=== PATIENT | male | born 1960 | race Caucasian/White ===

== ENCOUNTER 2018-11-03 11:52 | Emergency (ER) | payer MEDICAID, OTHER ==
[~2018-11-03] VITALS: Ht 167.6 cm; Wt 90.7 kg
[2018-11-03 11:59] VITALS: Ht 167.6 cm; Wt 90.7 kg
[2018-11-03] MEDS ORDERED: KETOROLAC 30 MG INJ IM STA (14:46)
[2018-11-03] MEDS ORDERED: METHOCARBAMOL 750 MG TAB PO ONE (15:00)
[2018-11-03] MEDS ORDERED: IBUP-1542 PO (16:12)
[2018-11-03] MEDS ORDERED: TYL500 PO (16:12)
[2018-11-03] MEDS ORDERED: METH750T93 PO (16:12)
[2018-11-03 16:27] VITALS: BP 127/61; PULSE 68; RESP 20
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
== END 2018-11-03 16:30 | disposition home or self-care (01) ==
LOC: FTE 11:52
DX: M54.2 Cervicalgia (principal); Z86.73 Personal history of transient ischemic attack (TIA), and cerebral infarction without residual deficits; Z87.891 Personal history of nicotine dependence
CPT/HCPCS: 73130; 73140; 96372; J1885; Z7502; Z7610

== ENCOUNTER 2019-02-24 12:30 | Observation (INO) | payer OTHER ==
[~2019-02-24] VITALS: Ht 177.8 cm; Wt 88.3 kg
[~2019-02-24 12:30] MED LIST: IBUP-1542 PO; METH750T93 PO; TYL500 PO
[2019-02-24] MEDS ORDERED: ASPIRIN 325 MG TAB PO STA (13:04)
[2019-02-24] MEDS ORDERED: NITROGLYCERIN 2% 1 GM OINT PKT TD STA (13:04)
--- NOTE | 2019-02-24 17:26 | ERD ---
ER Documentation Chief Complaint Chief Complaint pt has cp x 4 hours and migraine 8/10 x 24 hours 8/10 HPI This is a 59-year-old male who has diabetes who complained yesterday of a pressure sensation to the left central chest lasted just about a minute and then went away. He said today returned again and lasted 30 minutes with diaphoresis no shortness of breath or nausea or palpitations. The pain is currently gone. The pain did not radiate. Patient does not know if he has hypertension or high cholesterol. ROS All systems reviewed and are negative except as per history of present illness. Medications Home Meds Discontinued Scripts Methocarbamol* (Robaxin*) 750 Mg Tablet, 750 MG PO TID PRN for MUSCLE SPASMS, #30 TAB Prov:MARYBEL GONGORA DO 11/03/18 Acetaminophen* (Tylenol*) 500 Mg Tab, 500 MG PO Q4H PRN for MILD PAIN LEVEL 1-3, #30 TAB Prov:MARYBEL GONGORA DO 11/03/18 Ibuprofen* (Motrin*) 600 Mg Tab, 600 MG PO Q6H PRN for PAIN AND OR ELEVATED TEMP, #30 TAB Prov:MARYBEL GONGORA DO 11/03/18 Allergies Allergies: Coded Allergies: No Known Allergy (Unverified , 02/24/19) PMhx/Soc History of Surgery: Yes (amputation of left hand third finger) Anesthesia Reaction: No Hx Neurological Disorder: Yes (TIA, 2010, NO RESIDUAL) Hx Respiratory Disorders: No Hx Cardiac Disorders: No Hx Psychiatric Problems: No Hx Miscellaneous Medical Probl: No Hx Alcohol Use: No Hx Substance Use: No Hx Tobacco Use: Yes (SMOKED FOR 38 YEARS, QUIT 2 Y AGO) Smoking Status: Former smoker FmHx Family History: No coronary disease Physical Exam Vitals Vital Signs Date Temp Pulse Resp B/P (MAP) Pulse Ox O2 O2 Flow FiO2 Time Delivery Rate 02/24/19 97.9 84 21 122/76 94 Room Air 15:12 (91) 02/24/19 97.9 89 20 164/84 94 12:42 (110) Physical Exam Const: Well-developed, well-nourished Head: Atraumatic, normocephalic Eyes: Normal Conjunctiva, PERRLA, EOMI, normal sclera, no nystagmus ENT: Normal External Ears, Nose and Mouth, moist mucus membranes. Neck: Full range of motion. No meningismus, no lymphadenopathy. Resp: Clear to auscultation bilaterally, no wheezing, rhonchi, rales Cardio: Regular rate and rhythm, no murmurs, S1 S2 present Abd: Soft, non tender x 4, non distended. Normal bowel sounds, no gua rding or rebound, no pulsitile abdominal masses or bruits Skin: No petechiae or rashes, no ecchymosis , no maculopapular rash Back: No midline or flank tenderness Ext: No cyanosis, or edema, FROM x 4, normal inspection, neurovascularly intact x 4 Neur: Awake and alert, STR 5/5 x 4, sensation intact x 4, no focal findings, cerebellum intact Psych: Normal Mood and Affect Result Diagram: 02/24/19 1310 02/24/19 1310 Results 24 hrs Laboratory Tests Test 02/24/19 13:10 White Blood Count 8.4 10^3/ul Red Blood Count 6.04 10^6/ul Hemoglobin 14.9 g/dl Hematocrit 45.9 % Mean Corpuscular Volume 76.0 fl Mean Corpuscular Hemoglobin 24.7 pg Mean Corpuscular Hemoglobin Concent 32.5 g/dl Red Cell Distribution Width 16.1 % Platelet Count 257 10^3/UL Mean Platelet Volume 10.1 fl Immature Granulocytes % 0.400 % Neutrophils % 63.7 % Lymphocytes % 27.5 % Monocytes % 6.8 % Eosinophils % 1.1 % Basophils % 0.5 % Nucleated Red Blood Cells % 0.0 /100WBC Immature Granulocytes # 0.030 10^3/ul Neutrophils # 5.3 10^3/ul Lymphocytes # 2.3 10^3/ul Monocytes # 0.6 10^3/ul Eosinophils # 0.1 10^3/ul Basophils # 0.0 10^3/ul Nucleated Red Blood Cells # 0.0 10^3/ul Sodium Level 141 mmol/L Potassium Level 4.1 mmol/L Chloride Level 106 mmol/L Carbon Dioxide Level 23 mmol/L Anion Gap 12 Blood Urea Nitrogen 14 mg/dl Creatinine 0.82 mg/dl Est Glomerular Filtrat Rate mL/min > 60 mL/min Glucose Level 176 mg/dl Calcium Level 9.6 mg/dl Total Bilirubin 0.4 mg/dl Direct Bilirubin 0.00 mg/dl Indirect Bilirubin 0.4 mg/dl Aspartate Amino Transf (AST/SGOT) 20 IU/L Alanine Aminotransferase (ALT/SGPT) 33 IU/L Alkaline Phosphatase 71 IU/L Troponin I < 0.012 ng/ml Total Protein 7.8 g/dl Albumin 4.7 g/dl Globulin 3.10 g/dl Albumin/Globulin Ratio 1.51 Current Medications Medications Dose Sig/Leslie Start Time Status Last (Trade) Ordered Route PRN Stop Time Admin Dose Reason Admin Aspirin 325 mg ONCE STAT 02/24/19 DC 02/24/19 (Aspirin) PO 13:04 13:15 02/24/19 13:05 1 inch ONCE STAT 02/24/19 DC 02/24/19 Nitroglycerin TD 13:04 13:15 02/24/19 13:05 (Nitroglyceri n 2% Oint) Procedures/MDM EKG: Rate/Rhythm: Normal Sinus Rhythm,NL intervals QRS, ST, QT: NORMAL MO, QRS, QT] Impression: NORMAL EKG MR #: [id number] DOS: 02/24/19 1304 Ordering MD: GENTRY LOVE DO Location: E/R Room/Bed: PROCEDURE: XR Chest. CLINICAL INDICATION: Chest pain TECHNIQUE: Single portable view of the chest was obtained COMPARISON: CR CHEST 11/21/2012 FINDINGS: The heart and mediastinum are within normal limits. There are mild bibasilar atelectatic changes. The lungs are otherwise clear. There is no pleural effusion or pneumothorax. RPTAT: AA IMPRESSION: Mild bibasilar atelectatic changes. .Naresh Terry MD, MD Date Time Electronically viewed and signed by .Naresh Terry MD, on 02/24/2019 13:25 .S/ CC: GENTRY LOVE DO [id number] Cardiac Admit MDM: Patient's symptoms are concerning for cardiac cause will require inpatient workup and continuous monitoring. Further w/u for ischemia, arrhythmia, PE or dissection will be deferred to the inpatient team. Departure Diagnosis: Primary Impression: Chest pain Chest pain type: unspecified Qualified Codes: R07.9 - Chest pain, unspecified Condition: Stable GENTRY LOVE DO Feb 24, 2019 17:26
[2019-02-24] MEDS ORDERED: ONDANSETRON 4 MG INJ IV PRN (17:30)
[2019-02-24] MEDS ORDERED: NACL 0.9% 3 ML SYG IV SCH (17:30)
[2019-02-24] MEDS ORDERED: ACETAMINOPHEN 325 MG TAB PO PRN (17:30)
--- NOTE | 2019-02-24 18:18 | HP ---
Date/Time of Note Date/Time of Note DATE: 02/24/19 TIME: 18:17 Assessment/Plan VTE Prophylaxis Pharmacological prophylaxis: heparin Lines/Catheters IV [facility] Saline Lock Assessment/Plan Hospital Course This is a 59-year-old male with history of diabetes who presents with atypical chest pain -Likely this is a musculoskeletal pain syndrome but we must rule out ACS by cycling troponins -Doubt that this is a PE given he has negative Wells criteria -Monitor overnight Result Diagram: 02/24/19 1310 02/24/19 1310 Results 24hrs Laboratory Tests Test 02/24/19 13:10 White Blood Count 8.4 Red Blood Count 6.04 Hemoglobin 14.9 Hematocrit 45.9 Mean Corpuscular Volume 76.0 L Mean Corpuscular Hemoglobin 24.7 L Mean Corpuscular Hemoglobin Concent 32.5 Red Cell Distribution Width 16.1 H Platelet Count 257 Mean Platelet Volume 10.1 Immature Granulocytes % 0.400 Neutrophils % 63.7 Lymphocytes % 27.5 Monocytes % 6.8 Eosinophils % 1.1 Basophils % 0.5 Nucleated Red Blood Cells % 0.0 Immature Granulocytes # 0.030 Neutrophils # 5.3 Lymphocytes # 2.3 Monocytes # 0.6 Eosinophils # 0.1 Basophils # 0.0 Nucleated Red Blood Cells # 0.0 Sodium Level 141 Potassium Level 4.1 Chloride Level 106 Carbon Dioxide Level 23 Anion Gap 12 Blood Urea Nitrogen 14 Creatinine 0.82 Est Glomerular Filtrat Rate mL/min > 60 Glucose Level 176 Calcium Level 9.6 Total Bilirubin 0.4 Direct Bilirubin 0.00 Indirect Bilirubin 0.4 Aspartate Amino Transf (AST/SGOT) 20 Alanine Aminotransferase (ALT/SGPT) 33 Alkaline Phosphatase 71 Troponin I < 0.012 Total Protein 7.8 Albumin 4.7 Globulin 3.10 Albumin/Globulin Ratio 1.51 HPI/ROS Admit Date/Time Admit Date/Time Hx of Present Illness This is 59-year-old male with a history of mild diabetes who presents with headache and chest pain he was in his usual state of good health until 2 days ago. He says that he has developed a migraine that gave him severe symptoms off and on for 2 days. These were tolerable and he did not seek medical care. Headache is now resolved. However the past day he has developed pains in his chest. Describes the pain as initially as sharp pinches. However then lasted for about 20 to 30-minute episodes. These occurred at rest. They were not associated with any other symptoms like shortness of breath or palpitations. He does not have any exertional symptoms. Has never had angina before ROS Constitutional: no complaints, improved Eyes: no complaints ENT: no complaints Respiratory: no complaints Cardiovascular: no complaints Gastrointestinal: no complaints Genitourinary: no complaints Musculoskeletal: no complaints Skin: no complaints Neurologic: no complaints Endocrine: no complaints Lymphatic: no complaints Psychological: no complaints, nl mood/affect Immunologic: no complaints PMH/Family/Social Past Medical History Medical History: no pertinent history Medications Current Medications IV Flush (NS 3 ml) 3 ml PER PROTOCOL IV ; Start 02/24/19 at 17:30; Status UNV Acetaminophen/ Hydrocodone Bitart (Solomon (5/325)) 2 tab Q6H PRN PO .SEVERE PAIN 7-10; Start 02/24/19 at 17:30; Status UNV Enoxaparin Sodium (Lovenox) 30 mg DAILY SC ; Start 02/25/19 at 09:00; Status UNV Ondansetron HCl (Zofran Inj) 4 mg ER BRIDGE PRN IV NAUSEA/VOMITING; Start 02/24/19 at 17:30; Stop 02/25/19 at 17:29 Acetaminophen (Tylenol Tab) 650 mg ER BRIDGE PRN PO .MILD PAIN 1-3 OR TEMP; S tart 02/24/19 at 17:30; Stop 02/25/19 at 17:29 Coded Allergies: No Known Allergy (Unverified , 02/24/19) Past Surgical History Past Surgical Hx: no surgical history Family History Significant Family History: no pertinent family hx Social History Smoking Status: Former smoker Drug Use: none Exam/Review of Systems Vital Signs Vitals Vital Signs Date Temp Pulse Resp B/P (MAP) Pulse Ox O2 O2 Flow FiO2 Time Delivery Rate 02/24/19 97 17 105/60 98 Room Air 17:28 (75) 02/24/19 97.9 15:12 Exam Constitutional: alert, oriented, well developed Psych: no complaints, nl mood/affect Head: normocephalic, atraumatic Eyes: nl conjunctiva, EOMI, nl lids, nl sclera, PERRL ENMT: nl external ears & nose, nl lips & teeth, nl nasal mucosa & septum Neck: supple, non-tender Respiratory: clear to auscultation, normal air movement Cardiovascular: regular rate and rhythm, nl pulses Gastrointestinal: soft, nl liver, spleen, non-tender Musculoskeletal: nl extremities to inspection Extremities: normal pulses Neurological: [employer] II-XII intact, nl mental status, nl speech, nl strength Skin: nl turgor; No rash or lesions Lymph: nl lymph nodes ANTONY ARIAS MD Feb 24, 2019 18:18
[2019-02-25] VITALS (11 sets, daily range): BP systolic 116–141; BP diastolic 58–73; PULSE 73–99; RESP 18–20; Ht 177.8 cm; Wt 88.3 kg
[2019-02-25] MEDS: HYDROCODONE/APAP (5/325) TAB PO PRN (00:27)
[2019-02-25] MEDS: ENOXAPARIN 30 MG/0.3 ML SYG SC SCH (08:50)
--- NOTE | 2019-02-25 14:54 | PN ---
Date/Time of Note Date/Time of Note DATE: 02/25/19 TIME: 14:46 Assessment/Plan VTE Prophylaxis Risk score (from Nsg)>0 risk: 2 SCD applied (from Nsg): Yes Pharmacological prophylaxis: NA/contraindicated Pharm contraindication: low risk/ambulating Lines/Catheters IV Catheter Type (from Nrsg): Saline Lock Urinary Cath still in place: No Assessment/Plan Hospital Course 59 yo M with sudden onset L sided chest pain with remote hx of similar and 38 yrs of tobacco abuse who quit 8 years ago managed for 1. Chest pain -ACS has been ruled out, but patient based on hx may benefit from stress testing -add lipid panel and TSH -cardio consult 2. DM 2: A1c 7.4 -patient is now Diabetic as compared to being prediabetic before -he has been counselled on the need for dietary and medication control -plan to dc on low dose metformin at discharge Dispo: -await cardio review and recs. supportive care Result Diagram: 02/25/19 0504 02/25/19 0504 Results 24hrs Laboratory Tests Test 02/24/19 17:59 02/25/19 05:04 Troponin I < 0.012 < 0.012 White Blood Count 8.5 Red Blood Count 5.15 Hemoglobin 12.9 L Hematocrit 39.6 L Mean Corpuscular Volume 76.9 L Mean Corpuscular Hemoglobin 25.0 L Mean Corpuscular Hemoglobin Concent 32.6 Red Cell Distribution Width 15.6 H Platelet Count 225 Mean Platelet Volume 10.0 Immature Granulocytes % 0.400 Neutrophils % 51.0 Lymphocytes % 37.6 Monocytes % 8.0 Eosinophils % 2.5 Basophils % 0.5 Nucleated Red Blood Cells % 0.0 Immature Granulocytes # 0.030 Neutrophils # 4.3 Lymphocytes # 3.2 H Monocytes # 0.7 Eosinophils # 0.2 Basophils # 0.0 Nucleated Red Blood Cells # 0.0 Sodium Level 140 Potassium Level 4.2 Chloride Level 104 Carbon Dioxide Level 26 Anion Gap 10 Blood Urea Nitrogen 19 Creatinine 0.92 Est Glomerular Filtrat Rate mL/min > 60 Glucose Level 114 # Hemoglobin A1c 7.6 H Calcium Level 9.5 Total Bilirubin 0.5 Direct Bilirubin 0.00 Indirect Bilirubin 0.5 Aspartate Amino Transf (AST/SGOT) 18 Alanine Aminotransferase (ALT/SGPT) 35 Alkaline Phosphatase 55 Total Protein 6.3 # Albumin 3.8 Globulin 2.50 Albumin/Globulin Ratio 1.52 Subjective 24 Hr Interval Summary Free Text/Dictation still reporting L sided chest soreness Exam/Review of Systems Exam Vitals Vital Signs Date Temp Pulse Resp B/P (MAP) Pulse Ox O2 O2 Flow FiO2 Time Delivery Rate 02/25/19 88 12:16 02/25/19 97.5 18 116/70 95 Room Air 11:09 (85) Intake and Output 02/24/19 02/24/19 02/25/19 1515:00 23:00 07:00 IntakeIntake Total 500 ml BalanceBalance 500 ml Exam General: A&O x3, answering questions appropriately HEENT: NC/ AT. PERRL. EOM intact Neck: supple CVS: S1, S2, RRR. no murmurs. soreness on chest wall palpation Lungs: CTA b/l. no wheezing or rhonchi Abd: soft, nontender, +BS Ext: moving all extremities skin: no rashes Results Results 24hrs Laboratory Tests Test 02/24/19 17:59 02/25/19 05:04 Troponin I < 0.012 < 0.012 White Blood Count 8.5 Red Blood Count 5.15 Hemoglobin 12.9 L Hematocrit 39.6 L Mean Corpuscular Volume 76.9 L Mean Corpuscular Hemoglobin 25.0 L Mean Corpuscular Hemoglobin Concent 32.6 Red Cell Distribution Width 15.6 H Platelet Count 225 Mean Platelet Volume 10.0 Immature Granulocytes % 0.400 Neutrophils % 51.0 Lymphocytes % 37.6 Monocytes % 8.0 Eosinophils % 2.5 Basophils % 0.5 Nucleated Red Blood Cells % 0.0 Immature Granulocytes # 0.030 Neutrophils # 4.3 Lymphocytes # 3.2 H Monocytes # 0.7 Eosinophils # 0.2 Basophils # 0.0 Nucleated Red Blood Cells # 0.0 Sodium Level 140 Potassium Level 4.2 Chloride Level 104 Carbon Dioxide Level 26 Anion Gap 10 Blood Urea Nitrogen 19 Creatinine 0.92 Est Glomerular Filtrat Rate mL/min > 60 Glucose Level 114 # Hemoglobin A1c 7.6 H Calcium Level 9.5 Total Bilirubin 0.5 Direct Bilirubin 0.00 Indirect Bilirubin 0.5 Aspartate Amino Transf (AST/SGOT) 18 Alanine Aminotransferase (ALT/SGPT) 35 Alkaline Phosphatase 55 Total Protein 6.3 # Albumin 3.8 Globulin 2.50 Albumin/Globulin Ratio 1.52 Medications Medication Current Medications IV Flush (NS 3 ml) 3 ml PER PROTOCOL IV ; Start 02/24/19 at 17:30 Acetaminophen/ Hydrocodone Bitart (Timber (5/325)) 2 tab Q6H PRN PO .SEVERE PAIN 7-10 Last administered on 02/25/19at 00:27; Admin Dose 2 TAB; Start 02/24/19 at 17:30 Enoxaparin Sodium (Lovenox) 30 mg DAILY SC Last administered on 02/25/19at 08:50; Admin Dose 30 MG; Start 02/25/19 at 09:00 Ondansetron HCl (Zofran Inj) 4 mg ER BRIDGE PRN IV NAUSEA/VOMITING; Start 02/24/19 at 17:30; Stop 02/25/19 at 17:29 Acetaminophen (Tylenol Tab) 650 mg ER BRIDGE PRN PO .MILD PAIN 1-3 OR TEMP Last administered on 02/24/19at 23:01; Admin Dose 650 MG; Start 02/24/19 at 17:30; Stop 02/25/19 at 17:29 ISA NICOLE February 25, 2019 14:54
[2019-02-25] MEDS ORDERED: NITROGLYCERIN (SL) 0.4 MG TAB SL PRN (15:00)
--- NOTE | 2019-02-25 15:39 | CONS ---
DATE OF ADMISSION: 02/24/2019 DATE OF CONSULTATION: 02/25/2019 REASON FOR CONSULTATION: Chest pain, assess for acute coronary syndrome. REQUESTING PHYSICIAN: Dr. Nicole from the hospitalist service. HISTORY OF PRESENT ILLNESS: Mr. Fonseca is a 59-year-old male with history of diabetes mellitus who presented with complaints of substernal chest pain, stating that he had been at work and was doing i nventory on the computer. He began to have a headache and began to get very severe and began to get a pain in his chest, like a pinch filling, which began to get worse and more severe. Given these fin dings, the patient presented to the Emergency Department. Where upon arrival, temperature 97.9, bloo d pressure 164/84, pulse 89, respiratory rate 20, saturating 94%. The patient's labs revealed white count 8.4, hemoglobin 14.9, platelet count of 257,000. Sodium 141, potassium 4.1, creatinine 0.8, BU N 14. Troponin negative. AST 20, ALT 33. The patient's chest x-ray revealed mild bibasilar atelect atic change. The patient's electrocardiogram revealed normal sinus rhythm, rate 95, normal axis, nor mal intervals, with borderline inferior Q's. The patient was admitted to the floor and since admit t o the floor, states he had mild chest pain, which has since resolved. The patient had negative tropo harsha x2. PAST MEDICAL HISTORY: As above in HPI. MEDICATIONS CURRENTLY IN HOSPITAL: 1. Lovenox 30 mg subcutaneous daily. 2. Hope p.r.n. 3. Zofran p.r.n. 4. Tylenol p.r.n. ALLERGIES: NO KNOWN DRUG ALLERGIES. SOCIAL HISTORY: Remote tobacco, quit x8 to 10 years. No ETOH or illicit drug use. FAMILY HISTORY: Denies sudden cardiac or early CAD. REVIEW OF SYSTEMS: As above in HPI. CONSTITUTIONAL: No fevers, chills. PULMONARY: No current shortness of breath. CARDIOVASCULAR: Chest pain. GASTROINTESTINAL: No vomiting. GENITOURINARY: No hematuria. MUSCULOSKELETAL: Degenerative joint disease. PSYCHIATRIC: No documented psych history. NEUROLOGIC: No documented history of CVA. ENDOCRINE: Diabetes mellitus. PHYSICAL EXAMINATION: VITAL SIGNS: Temperature of 97.5, blood pressure 116/70, pulse 76, rate 18, saturating 95%. GENERAL: The patient is alert, awake, in no acute distress. NECK: JVP approximately 8 to 9 cm of water. CHEST: Fair air movement throughout. HEART: Regular rate and rhythm. Normal S1, S2. Grade I/ systolic murmur, nondisplaced PMI. ABDOMEN: Positive bowel sounds. Soft. EXTREMITIES: No significant pitting edema, 1+ pulses bilateral posterior tibial. LABORATORY DATA: Most recently from today: Sodium 140, potassium 4.2, creatinine 0.9, BUN 19. Whit e blood count 8.5, hemoglobin 12.9, platelet count of 225,000. Hemoglobin A1c of 7.6. IMAGING STUDIES: As above in HPI. No further imaging studies for my review at this time. DIAGNOSTIC STUDIES: ECG as noted in the HPI. No further electrocardiograms for my review at this ti me. IMPRESSION: 1. Chest pain, assess for acute coronary syndrome. 2. . 3. Abnormal echocardiogram with borderline inferior Q's and nonspecific ST-T abnormalities. 4. Headaches. 5. Diabetes mellitus. RECOMMENDATIONS: 1. At this time would maintain patient on telemetry monitoring and follow rhythm and rates closely. 2. Complete the patient's rule out for myocardial infarction. They will send a final troponin. 3. We will give the patient sublingual nitroglycerin for any recurrent episodes of chest pain. 4. We will follow the patient's 2D echocardiogram done for assessment of ejection fraction, wall mot ion and major valve abnormalities. 5. Check a fasting lipid panel for general risk stratification and initiate lipid-lowering medicatio n as necessary. 6. If patient does rule out for myocardial infarction, I believe this patient would benefit from fur ther inpatient risk stratification with cardiac stress test, which can be scheduled to take place [facility] in the morning. Thank you for allowing me to take part in the care of this patient. I will continue to follow along very closely with you with recommendations to be made as the patient progresses through his inpatient hospital clinical course. Dictated By: KIMBERLY BERNAL/NTS Conf#: [id number] DID#: [id number] CC: ISA NICOLE MD; ANTONY ARIAS MD;*EndCC*
--- NOTE | 2019-02-25 19:10 | RADRPT ---
Echocardiogram Report Patient Name: Nany BOLES ID: [id number] : 1960 (59y 2m)Study Date: 02/25/2019 11:39:04 AM Gender: MAccession #: [id number] Tech: Rick Saeed RDCS Location: 606 Ref.Physician: ISA NICOLE Height(Cm): BSA: Weight(Kg): Quality: AdequateAccount #: Procedures: Echocardiographic Report: Transthoracic echocardiogram with complete 2D, M-Mode, and doppler examination. Indications: Chest Pain. Measurements: 2D/M Mode Doppler Measurement Value Normal Range Measurement Value Normal Range LVIDd 2D 4.0 [ 4.2 - 5.8 ] cm AV Peak Uche 1.3 [ 100.0 - 170.0 ] cm/sec LVIDs 2D 2.6 [ 2.5 - 4.0 ] cm AV Peak PG 7.0 [ 2.0 - 9.0 ] mmHg LVPWd 2D 1.0 [ 0.6 - 1.0 ] cm LVOT Peak Uche 0.9 [ 70.0 - 110.0 ] cm/sec IVSd 2D 1.1 [ 0.6 - 1.0 ] cm LVOT Peak PG 3.0 [ 2.0 - 6.0 ] mmHg AoR Diam 2D 2.9 [ 2.6 - 3.4 ] cm MV E Peak Uche 0.4 [ 60.0 - 130.0 ] cm/sec EDV 2D 71.7 [ 62.0 - 150.0 ] ml MV A Peak Uche 0.8 [ 100.0 - 120.0 ] cm/sec ESV 2D 23.7 [ 21.0 - 61.0 ] ml MV E/A 0.5 [ 0.8 - 1.5 ] ratio EF 2D 66.9 [ 52.0 - 72.0 ] percent MV Decel Time 352 [ 104 - 258 ] msec LA Dimen 2D 2.8 [ 3.0 - 4.0 ] cm Lat E` Uche 0.1 [ 10.0 - 15.0 ] cm/sec Lateral E/E` 5.8 [ 1.0 - 2.0 ] ratio MV E/A 0.5 [ 0.8 - 1.5 ] ratio TR Peak Uche 2.1 [ 100.0 - 280.0 ] cm/sec TR Peak PG 18.0 mmHg RVSP 21.0 [ 10.0 - 36.0 ] mmHg RA Pressure 3.0 mmHg Findings: Left Ventricle: Normal left ventricular systolic function. Normal left ventricular cavity size. Mild concentric left ventricular hypertrophy. Ejection fraction is visually estimated at 55 %. Tissue Doppler/Mitral Doppler indices are consistent with impaired relaxation (Stage I diastolic dysfunction). Right Ventricle: Normal right ventricular systolic function. Mild enlargement of right ventricle. Left Atrium: The left atrium is normal in size. Right Atrium: There is mild enlargement of right atrium. Mitral Valve: Normal appearance and function of the mitral valve with trace physiologic regurgitation. Aortic Valve: Normal appearance of the aortic valve. No significant aortic stenosis or insufficiency. Tricuspid Valve: Normal appearance of the tricuspid valve. Estimated peak PA systolic pressure 21 mmHg. There is trace tricuspid regurgitation. Pulmonic Valve: Normal pulmonic valve appearance. Pericardium: Normal pericardium with no significant pericardial effusion. Aorta: Normal aortic root. IVC: Normal size and normal respiratory collapse consistent with normal right atrial pressure. Conclusions: Normal left ventricular systolic function. Normal left ventricular cavity size. Mild concentric left ventricular hypertrophy. Ejection fraction is visually estimated at 55 %. Tissue Doppler/Mitral Doppler indices are consistent with impaired relaxation (Stage I diastolic dysfunction). There is mild enlargement of right atrium. Normal appearance and function of the mitral valve with trace physiologic regurgitation. Normal appearance of the tricuspid valve. Estimated peak PA systolic pressure 21 mmHg. There is trace tricuspid regurgitation. Electronically Signed By: Pancho Betancourt 2019-02-25 19:10:01 PDT
[2019-02-26] VITALS (13 sets, daily range): BP systolic 117–155; BP diastolic 60–73; PULSE 62–102; RESP 18–22
[2019-02-26] MEDS: ENOXAPARIN 30 MG/0.3 ML SYG SC SCH (09:13)
[2019-02-26] MEDS ORDERED: REGADENOSON 0.4 MG/5 ML SYG ONE (12:18)
[2019-02-26] MEDS ORDERED: ASPI-817 PO (12:25)
[2019-02-26] MEDS ORDERED: METF500T PO (12:25)
[2019-02-26] MEDS ORDERED: ATOR40TA68 PO (12:25)
--- NOTE | 2019-02-26 12:26 | PDOCDIS ---
Discharge Instructions CONDITION [id number] Patient Condition: [id number] Stable HOME CARE INSTRUCTIONS: [id number] Diet Instructions: Gcoqp2m Low Fat /Cholesterol ACTIVITY: [id number] Activity Restrictions: Bopgd2e Slowly Increase Activity Rest between Activity FOLLOW UP/APPOINTMENTS Follow-up Plan Followup with your primary doctor within the next 1-2 weeks. If you don't have one please let someone know, we can give you resources that may help you pick one. You may call Dr Rolan Moise's office. he's accepting new patients Name, Degree: Rolan Moise MD Specialty: Internal Medicine Comments: Office Address: [address] [place] [address] [place] [id number] Office Office You may also call your insurance company to assign one to you. Review your medication list with your nurse before leaving and if you need new prescriptions please let your nurse know. I may have made changes to your home medications or given you new prescriptions, please let your primary doctor know as well. Stay compliant with your medications and report any side effects to your PCP or pharmacist. Return to the ER if you have any concerns and cannot reach your doctors or call your insurance company, they usually have a nurse that can help you. ISA NICOLE February 26, 2019 12:26
--- NOTE | 2019-02-26 12:28 | DS ---
Date/Time of Note Date/Time of Note DATE: 02/26/19 TIME: 12:27 Discharge Summary Admission/Discharge Info Admit Date/Time Feb 24, 2019 at 17:26 Discharge Date/Time Discharge Diagnosis 59 yo M with sudden onset L sided chest pain with remote hx of similar and 38 yrs of tobacco abuse who quit 8 years ago managed for 1. Chest pain: improved 2. DM 2: A1c 7.4 3. Dyslipidemia ., Patient Condition: Stable Consults Cardiology: shane Betancourt MD . Procedures 1. Echocardiogram showed ejection fraction of 55% with stage I diastolic dy sfunction without significant valvular deficits. 2. Stress test: . Hospital Course 59-year-old male who had presented to the emergency room late atypical left- sided chest pain that seems more like muscle soreness but had risk factor of previous tobacco use for about 30 years before quitting 8 years ago as well as diabetes mellitus type 2. He was seen by cardiology, has undergone stress testing today. Results is pending. His stress test is negative, patient has been discharged in stable condition. Otherwise further interventions will depend on his clinical course. . Home Meds Discontinued Scripts Methocarbamol* (Robaxin*) 750 Mg Tablet, 750 MG PO TID PRN for MUSCLE SPASMS, #30 TAB Prov:MARYBEL GONGORA DO 11/03/18 Acetaminophen* (Tylenol*) 500 Mg Tab, 500 MG PO Q4H PRN for MILD PAIN LEVEL 1-3, #30 TAB Prov:MARYBEL GONGORA DO 11/03/18 Ibuprofen* (Motrin*) 600 Mg Tab, 600 MG PO Q6H PRN for PAIN AND OR ELEVATED TEMP, #30 TAB Prov:MARYBEL GONGORA DO 11/03/18 Follow-up Plan Followup with your primary doctor within the next 1-2 weeks. If you don't have one please let someone know, we can give you resources that may help you pick one. You may call Dr Rolan Moise's office. he's accepting new patients Name, Degree: Rolan Moise MD Specialty: Internal Medicine Comments: Office Address: [address] [place] [address] [place] [id number] Office Office You may also call your insurance company to assign one to you. Review your medication list with your nurse before leaving and if you need new prescriptions please let your nurse know. I may have made changes to your home medications or given you new prescriptions, please let your primary doctor know as well. Stay compliant with your medications and report any side effects to your PCP or pharmacist. Return to the ER if you have any concerns and cannot reach your doctors or call your insurance company, they usually have a nurse that can help you. Primary Care Provider Not On Staff Doctor Time spent on discharge: > 30 minutes Pending Labs Laboratory Tests Test 02/25/19 15:23 02/26/19 05:08 02/26/19 05:14 Troponin I < 0.012 ng/ml (0.000-0.120) Bedside Glucose 101 mg/dL (70-220) White Blood Count 8.3 10^3/ul (4.8-10.8) Red Blood Count 5.96 10^6/ul (4.70-6.10 ) Hemoglobin 14.7 g/dl (14.0-18.0) Hematocrit 45.3 % (42.0-52.0) Mean Corpuscular 76.0 Volume fl (82.0-101.0) Mean Corpuscular 24.7 Hemoglobin pg (29.0-33.0) Mean Corpuscular 32.5 Hemoglobin Concent g/dl (32.0-37.0) Red Cell 15.5 % (11.5-14.5) Distribution Width Platelet Count 235 10^3/UL (140-415) Mean Platelet 10.1 fl (7.4-10.4) Volume Immature 0.400 Granulocytes % % (0.001-0.429) Neutrophils % 52.8 % (39.0-77.0) Lymphocytes % 36.0 % (15.0-51.0) Monocytes % 7.9 % (0.0-11.0) Eosinophils % 2.3 % (0.0-7.0) Basophils % 0.6 % (0.0-2.0) Nucleated Red Blood 0.0 Cells % /100WBC (0.0-0.0) Immature 0.030 Granulocytes # 10^3/ul (0.0-0.031 ) Neutrophils # 4.4 10^3/ul (1.6-7.5) Lymphocytes # 3.0 10^3/ul (0.8-2.9) Monocytes # 0.7 10^3/ul (0.3-0.9) Eosinophils # 0.2 10^3/ul (0.0-0.5) Basophils # 0.1 10^3/ul (0.0-0.1) Nucleated Red Blood 0.0 Cells # 10^3/ul (0.0-0.0) Sodium Level 142 mmol/L (135-144) Potassium Level 4.2 mmol/L (3.5-5.1) Chloride Level 106 mmol/L (97-110) Carbon Dioxide 25 mmol/L (21-31) Level Anion Gap 11 (5-13) Blood Urea 13 mg/dl (7-20) Nitrogen Creatinine 0.90 mg/dl (0.61-1.24) Est Glomerular > 60 mL/min (>60) Filtrat Rate mL/min Glucose Level 105 mg/dl (70-220) Calcium Level 9.7 mg/dl (8.4-10.2) Magnesium Level 2.1 mg/dl (1.7-2.5) Triglycerides 270 mg/dl (0-149) Level Cholesterol Level 202 mg/dl (100-200) LDL Cholesterol, 123 mg/dl Calculated HDL Cholesterol 25 mg/dl (30-78) Cholesterol/HDL 8.0 RATIO Ratio Thyroid Stimulating 0.953 Hormone (TSH) MIU/L (0.465-4.680 ) ISA NICOLE February 26, 2019 12:28
[2019-02-26] MEDS ORDERED: GLUCOSE GEL 15 GRAM TUBE PO PRN ×2 (12:30)
[2019-02-26] MEDS ORDERED: DEXTROSE 50% 50 ML SYRINGE IV PRN ×2 (12:30)
[2019-02-26] MEDS ORDERED: GLUCAGON 1 MG INJ IM PRN (12:30)
[2019-02-26] MEDS ORDERED: GLUCOSE GEL 15 GRAM TUBE BUCCAL PRN (12:30)
[2019-02-26] MEDS ORDERED: BLOO-432 MC (12:31)
[2019-02-26] MEDS ORDERED: [UNRECOGNIZED DRUG - CODE] MC (12:31)
[2019-02-26] MEDS ORDERED: BLOO-1202 MC (12:31)
--- NOTE | 2019-02-26 12:33 | CONS ---
Assessment/Plan Assessment/Plan Hospital Course (Demo Recall) IMPRESSION: 1. Chest pain, assess for acute coronary syndrome.-neg trop x 3/NL EF by echo 2. Abnormal echocardiogram with borderline inferior Q's and nonspecific ST-T abnormalities. 3. Headaches. 4. Diabetes mellitus. Recc: -Tele -Continue statin -PRN SLNTG -Lexiscan stress test today and if no ischemia then patient is ok for d.c from cardiac stndpoint Consultation Date/Type/Reason Admit Date/Time Feb 24, 2019 at 17:26 Initial Consult Date 02/25/19 Type of Consult Cardiology Reason for Consultation chest pain Requesting Provider: ISA NICOLE Date/Time of Note DATE: 02/26/19 TIME: 12:31 Exam/Review of Systems Vital Signs Vitals Vital Signs Date Temp Pulse Resp B/P (MAP) Pulse Ox O2 O2 Flow FiO2 Time Delivery Rate 02/26/19 102 12:08 02/26/19 98.0 22 127/67 96 Room Air 11:22 (87) Intake and Output 02/25/19 02/25/19 02/26/19 1515:00 23:00 07:00 IntakeIntake Total 400 ml 300 ml BalanceBalance 400 ml 300 ml Exam Exam Review of Systems: CONSTITUTIONAL: No fevers, chills. PULMONARY: No sob CARDIOVASCULAR: No chest pain/palpitations GASTROINTESTINAL: No nausea/vomiting. GENITOURINARY: No hematuria/dysuria. MUSCULOSKELETAL: No myagias/arthalgias. PSYCHIATRIC: The patient denies depression. NEUROLOGIC: No weakness Constitutional: alert Psych: no complaints Head: normocephalic ENMT: mucosa pink and moist Neck: supple, jvd (9 cm water) Respiratory: clear to auscultation Cardiovascular: regular rate and rhythm Gastrointestinal: soft, non-tender Musculoskeletal: muscle tone (normal) Extremities: edema (none) Neurological: other (No focal deficits) Labs Result Diagram: 02/26/19 0514 02/26/19 0514 Results 24hrs Laboratory Tests Test 02/25/19 15:23 02/26/19 05:08 02/26/19 05:14 Troponin I < 0.012 Bedside Glucose 101 White Blood Count 8.3 Red Blood Count 5.96 Hemoglobin 14.7 Hematocrit 45.3 Mean Corpuscular Volume 76.0 L Mean Corpuscular Hemoglobin 24.7 L Mean Corpuscular Hemoglobin Concent 32.5 Red Cell Distribution Width 15.5 H Platelet Count 235 Mean Platelet Volume 10.1 Immature Granulocytes % 0.400 Neutrophils % 52.8 Lymphocytes % 36.0 Monocytes % 7.9 Eosinophils % 2.3 Basophils % 0.6 Nucleated Red Blood Cells % 0.0 Immature Granulocytes # 0.030 Neutrophils # 4.4 Lymphocytes # 3.0 H Monocytes # 0.7 Eosinophils # 0.2 Basophils # 0.1 Nucleated Red Blood Cells # 0.0 Sodium Level 142 Potassium Level 4.2 Chloride Level 106 Carbon Dioxide Level 25 Anion Gap 11 Blood Urea Nitrogen 13 Creatinine 0.90 Est Glomerular Filtrat Rate mL/min > 60 Glucose Level 105 Calcium Level 9.7 Magnesium Level 2.1 Triglycerides Level 270 H Cholesterol Level 202 H LDL Cholesterol, Calculated 123 HDL Cholesterol 25 L Cholesterol/HDL Ratio 8.0 Thyroid Stimulating Hormone (TSH) 0.953 Medications Medications Current Medications IV Flush (NS 3 ml) 3 ml PER PROTOCOL IV ; Start 02/24/19 at 17:30 Acetaminophen/ Hydrocodone Bitart ([place] (5/325)) 2 tab Q6H PRN PO .SEVERE PAIN 7-10 Last administered on 02/25/19at 00:27; Admin Dose 2 TAB; Start 02/24/19 at 17:30 Enoxaparin Sodium (Lovenox) 30 mg DAILY SC Last administered on 02/26/19at 09:13; Admin Dose 30 MG; Start 02/25/19 at 09:00 Nitroglycerin (Nitroglycerin (Sl Tab) 0.4 Mg) 1 tab Q5M PRN SL ANGINA; Start 02/25/19 at 15:00 Atorvastatin Calcium (Lipitor) 40 mg HS PO ; Start 02/26/19 at 21:00 Miscellaneous Information (* Miscellaneous Pharmacy Order) Discontinue current oral sulfonylur... ONCE ONCE XX ; Start 02/26/19 at 12:30; Stop 02/26/19 at 12:31 Diagnostic Test (Pha) (Accu-Chek) 1 XX ; Start 02/27/19 at 02:00 Miscellaneous Information (* Miscellaneous Pharmacy Order) HYPOGLYCEMIA PROTOCOL w... ONCE ONCE XX ; Start 02/26/19 at 12:30; Stop 02/26/19 at 12:31 Insulin Aspart (Novolog Insulin Pen) NOVOLOG *MILD* ALGORITHM WITH MEALS BEDTIME SC ; Start 02/26/19 at 13:30 Miscellaneous Information (* Miscellaneous Pharmacy Order) Discontinue all previ... ONCE ONCE XX ; Start 02/26/19 at 12:30; Stop 02/26/19 at 12:31 Miscellaneous Information 1 ea NOTE XX ; Start 02/26/19 at 12:30 Glucose (Glutose) 15 gm Q15M PRN PO DECREASED GLUCOSE; Start 02/26/19 at 12:30 Glucose (Glutose) 22.5 gm Q15M PRN PO DECREASED GLUCOSE; Start 02/26/19 at 12:30 Dextrose (D50w Syringe) 25 ml Q15M PRN IV DECREASED GLUCOSE; Start 02/26/19 at 12:30 Dextrose (D50w Syringe) 50 ml Q15M PRN IV DECREASED GLUCOSE; Start 02/26/19 at 12:30 Glucagon (Glucagen) 1 mg Q15M PRN IM DECREASED GLUCOSE; Start 02/26/19 at 12:30 Glucose (Glutose) 15 gm Q15M PRN BUCCAL DECREASED GLUCOSE; Start 02/26/19 at 12:30 KIMBERLY BOOTH February 26, 2019 12:33
[2019-02-26] MEDS: INSULIN ASPART [NOVOLOG] 3 ML PEN SC SCH ×3 (13:48→22:34)
--- NOTE | 2019-02-26 15:59 | RADRPT ---
Vent Rate: 79 bpm RR Interval: 760 msec ID Interval: 146 msec QRS Duration: 81 msec QT Interval: 358 msec QTC Interval: 411 msec P-R-T [place]: 73 - 58 - 42 degrees Sinus rhythm...normal P axis, V-rate 50- 99 Electronically Signed By: Jt Duarte
[2019-02-26] MEDS: HYDROCODONE/APAP (5/325) TAB PO PRN (16:31)
--- NOTE | 2019-02-26 19:10 | CARRPT ---
DATE OF PROCEDURE: 02/26/2019 REASON FOR STRESS TESTING: Chest pain, assess for ischemia. BASELINE VITAL SIGNS AND ELECTROCARDIOGRAM: Pulse 83, blood pressure 135/76. Electrocardiogram norm al sinus rhythm, 83, normal axis, normal intervals. T-wave flattening in the lateral leads. PROCEDURE: The patient underwent standard Lexiscan infusion protocol over 10 seconds followed by rad iolabeled tracer. The patient's test was stopped due to completion of protocol. Maximal achieved bl ood pressure during the test was 150/68. Maximum heart rate during the test was 116. ELECTROCARDIOGRAM FINDINGS: The patient did not develop any new Lexiscan-induced ST or T-wave change s from baseline abnormalities. Rare PVCs. SYMPTOMS: The patient had no complaints of chest pain, shortness breath during stress testing. IMPRESSION: 1. No Lexiscan-induced ST or T-wave changes from baseline abnormalities diagnostic of cardiac ischem ia. 2. No complaints of chest pain or shortness of breath during stress testing. 3. Positive occasional contractions during stress testing. 4. Report of nuclear images to follow in separate dictation. Dictated By: KIMBERLY BERNAL/NADIA Conf#: [id number] DID#: [id number]
[2019-02-26] MEDS ORDERED: ATORVASTATIN 40 MG TAB PO SCH (21:00)
[2019-02-27] VITALS (8 sets, daily range): BP systolic 130–139; BP diastolic 69–76; PULSE 68–87; RESP 17–20
[2019-02-27] MEDS ORDERED: ACCU-CHEK XX SCH (02:00)
[2019-02-27] MEDS: INSULIN ASPART [NOVOLOG] 3 ML PEN SC SCH ×2 (07:44→11:53)
[2019-02-27] MEDS: ENOXAPARIN 30 MG/0.3 ML SYG SC SCH (08:31)
[2019-02-27] MEDS ORDERED: ATOR20TA38 PO (10:59)
[2019-02-27] MEDS ORDERED: LISI10TA2 PO (10:59)
--- NOTE | 2019-02-27 11:25 | DS ---
Date/Time of Note Date/Time of Note DATE: 02/27/19 TIME: 11:22 Discharge Summary Admission/Discharge Info Admit Date/Time Feb 24, 2019 at 17:26 Discharge Date/Time Discharge Diagnosis 59 yo M with sudden onset L sided chest pain with remote hx of similar and 38 yrs of tobacco abuse who quit 8 years ago managed for 1. Chest pain: improved 2. DM 2: A1c 7.4 3. Dyslipidemia 4. Chronic migraine headaches with aura ., Patient Condition: Stable Consults Pancho Betancourt MD . Hospital Course 59-year-old male who had presented to the emergency room late atypical left- sided chest pain that seems more like muscle soreness but had risk factor of previous tobacco use for about 30 years before quitting 8 years ago as well as diabetes mellitus type 2. He was seen by cardiology, has undergone stress testing today. Results is pending. His stress test is negative, patient has been discharged in stable condition. Otherwise further interventions will depend on his clinical course. . 02/27/19: Patient could not be discharged yesterday because we needed to discuss the findings from his stress test. Other today he is remains well, has no further chest pain. He is very concerned because the main thing that brought him to the hospital was recurrent headaches. The description of the headache sounds like migraine headaches with aura, the patient is concerned for underlying cause. Hence will order a CT of the brain. If unremarkable, patient will be discharged home. He has been given migraine precautions. He will also follow-up with primary care doctor with possible cardiology referral, and neurology as well if indicated. . Home Meds Active Scripts Atorvastatin Calcium* (Atorvastatin Calcium*) 20 Mg Tablet, 20 MG PO QHS, #30 TAB 2 Refills Prov:ISA NICOLE. 02/27/19 Lisinopril* (Lisinopril*) 10 Mg Tablet, 10 MG PO DAILY, #30 TAB 2 Refills Prov:SIA NICOLE. 02/27/19 Blood Glucose Strips-Dispmeter (Astley Clarkeck Blood Glucose System) 1 Each Kit, EACH [facility] A for diabetes, new diagnosis , #100 2 Refills Prov:ISA NICOLE. 02/26/19 Lancets (Advocate Lancet) 1 Each Each, EACH [facility] A for diabetes, #100 2 Refills Prov:COREYISA Delgado. 02/26/19 Blood-Glucose Meter (Advanced Glucose Meter) 1 Each Each, EACH [facility], #1 Prov:ISA NICOLEChristos 02/26/19 Aspirin* (Aspirin* EC) 81 Mg Tablet., 81 MG PO DAILY, #30 TAB 2 Refills Prov:ISA NICOLEChristos 02/26/19 Metformin Hcl (Glucophage) 500 Mg Tablet, 500 MG PO WITH BREAKFAST DINNE, #60 TAB 2 Refills Prov:ISA NICOLEChristos 02/26/19 Discontinued Scripts Methocarbamol* (Robaxin*) 750 Mg Tablet, 750 MG PO TID PRN for MUSCLE SPASMS, #30 TAB Prov:MARYBEL GONGORA DO 11/03/18 Acetaminophen* (Tylenol*) 500 Mg Tab, 500 MG PO Q4H PRN for MILD PAIN LEVEL 1-3, #30 TAB Prov:MARYBEL GONGORA DO 11/03/18 Ibuprofen* (Motrin*) 600 Mg Tab, 600 MG PO Q6H PRN for PAIN AND OR ELEVATED TEMP, #30 TAB Prov:MARYBEL GONGORA DO 11/03/18 Follow-up Plan Followup with your primary doctor within the next 1-2 weeks. If you don't have one please let someone know, we can give you resources that may help you pick one. You may call Dr Rolan Moise's office. he's accepting new patients Name, Degree: Rolan Moise MD Specialty: Internal Medicine Comments: Office Address: [address] [place] [address] Office Office You may also call your insurance company to assign one to you. Review your medication list with your nurse before leaving and if you need new prescriptions please let your nurse know. I may have made changes to your home medications or given you new prescriptions, please let your primary doctor know as well. Stay compliant with your medications and report any side effects to your PCP or pharmacist. Return to the ER if you have any concerns and cannot reach your doctors or call your insurance company, they usually have a nurse that can help you. Primary Care Provider Not On Staff Doctor Time spent on discharge: > 30 minutes Pending Labs Laboratory Tests Test 02/26/19 13:31 02/26/19 17:22 02/26/19 22:28 02/27/19 05:01 Bedside 156 108 130 Glucose mg/dL (70-220) mg/dL (70-220) mg/dL (70-220) White Blood 7.0 Count 10^3/ul (4.8-1 0.8) Red Blood 5.66 Count 10^6/ul (4.70- 6.10) Hemoglobin 13.9 g/dl (14.0-18. 0) Hematocrit 43.8 % (42.0-52.0) Mean 77.4 Corpuscular fl (82.0-101.0 Volume ) Mean 24.6 Corpuscular pg (29.0-33.0) Hemoglobin Mean 31.7 Corpuscular g/dl (32.0-37. Hemoglobin Conc 0) ent Red Cell 15.2 Distribution % (11.5-14.5) Width Platelet Count 226 10^3/UL (140-4 15) Mean Platelet 10.2 Volume fl (7.4-10.4) Immature 0.300 Granulocytes % % (0.001-0.429 ) Neutrophils % 42.2 % (39.0-77.0) Lymphocytes % 45.0 % (15.0-51.0) Monocytes % 8.9 % (0.0-11.0) Eosinophils % 3.2 % (0.0-7.0) Basophils % 0.4 % (0.0-2.0) Nucleated Red 0.0 Blood Cells % /100WBC (0.0-0 .0) Immature 0.020 Granulocytes # 10^3/ul (0.0-0 .031) Neutrophils # 2.9 10^3/ul (1.6-7 .5) Lymphocytes # 3.1 10^3/ul (0.8-2 .9) Monocytes # 0.6 10^3/ul (0.3-0 .9) Eosinophils # 0.2 10^3/ul (0.0-0 .5) Basophils # 0.0 10^3/ul (0.0-0 .1) Nucleated Red 0.0 Blood Cells # 10^3/ul (0.0-0 .0) Sodium Level 141 mmol/L (135-14 4) Potassium 3.8 Level mmol/L (3.5-5. 1) Chloride Level 103 mmol/L (97-110 ) Carbon Dioxide 28 Level mmol/L (21-31) Anion Gap 10 (5-13) Blood Urea 14 Nitrogen mg/dl (7-20) Creatinine 0.95 mg/dl (0.61-1. 24) Est Glomerular > 60 Filtrat mL/min (>60) Rate mL/min Glucose Level 128 mg/dl (70-220) Calcium Level 9.3 mg/dl (8.4-10. 2) Test 02/27/19 07:42 Bedside 138 Glucose mg/dL (70-220) ISA NICOLE February 27, 2019 11:25
[2019-02-27] MEDS ORDERED: SUMA25TA3 PO (11:26)
--- NOTE | 2019-02-27 13:31 | CONS ---
Assessment/Plan Assessment/Plan Hospital Course (Demo Recall) IMPRESSION: 1. Chest pain, assess for acute coronary syndrome.-neg trop x 3/NL EF by echo. Lexiscan with questionable scar but no sichemia/EF 51% 2. Abnormal echocardiogram with borderline inferior Q's and nonspecific ST-T abnormalities. 3. Headaches. 4. Diabetes mellitus. Recc: -Tele -Continue statin -PRN SLNTG -[facility] for recurrent chest pain Consultation Date/Type/Reason Admit Date/Time Feb 24, 2019 at 17:26 Initial Consult Date 02/25/19 Type of Consult Cardiology Reason for Consultation chest pain Requesting Provider: ISA NICOLE Date/Time of Note DATE: 02/27/19 TIME: 13:29 Exam/Review of Systems Vital Signs Vitals Vital Signs Date Temp Pulse Resp B/P (MAP) Pulse Ox O2 O2 Flow FiO2 Time Delivery Rate 02/27/19 98.5 84 20 130/70 95 Room Air 12:41 (90) Intake and Output 02/26/19 02/26/19 02/27/19 1515:00 23:00 07:00 IntakeIntake Total 460 ml 500 ml BalanceBalance 460 ml 500 ml Exam Exam Review of Systems: CONSTITUTIONAL: No fevers, chills. PULMONARY: No sob CARDIOVASCULAR: No chest pain/palpitations GASTROINTESTINAL: No nausea/vomiting. GENITOURINARY: No hematuria/dysuria. MUSCULOSKELETAL: No myagias/arthalgias. PSYCHIATRIC: The patient denies depression. NEUROLOGIC: No weakness Constitutional: alert, oriented Psych: no complaints Head: normocephalic ENMT: mucosa pink and moist Neck: supple, jvd (9 cm water) Respiratory: clear to auscultation Cardiovascular: regular rate and rhythm Gastrointestinal: soft, non-tender Musculoskeletal: muscle tone (normal) Extremities: edema (none) Neurological: other (No focal deficits) Labs Result Diagram: 02/27/19 0501 02/27/19 0501 Results 24hrs Laboratory Tests Test 02/26/19 13:31 02/26/19 17:22 02/26/19 22:28 02/27/19 05:01 Bedside Glucose 156 108 130 White Blood Count 7.0 Red Blood Count 5.66 Hemoglobin 13.9 L Hematocrit 43.8 Mean Corpuscular Volume 77.4 L Mean Corpuscular 24.6 L Hemoglobin Mean Corpuscular 31.7 L Hemoglobin Concent Red Cell Distribution 15.2 H Width Platelet Count 226 Mean Platelet Volume 10.2 Immature Granulocytes % 0.300 Neutrophils % 42.2 Lymphocytes % 45.0 Monocytes % 8.9 Eosinophils % 3.2 Basophils % 0.4 Nucleated Red Blood 0.0 Cells % Immature Granulocytes # 0.020 Neutrophils # 2.9 Lymphocytes # 3.1 H Monocytes # 0.6 Eosinophils # 0.2 Basophils # 0.0 Nucleated Red Blood 0.0 Cells # Sodium Level 141 Potassium Level 3.8 Chloride Level 103 Carbon Dioxide Level 28 Anion Gap 10 Blood Urea Nitrogen 14 Creatinine 0.95 Est Glomerular Filtrat > 60 Rate mL/min Glucose Level 128 Calcium Level 9.3 Test 02/27/19 07:42 02/27/19 11:44 Bedside Glucose 138 149 Medications Medications Current Medications IV Flush (NS 3 ml) 3 ml PER PROTOCOL IV ; Start 02/24/19 at 17:30 Acetaminophen/ Hydrocodone Bitart ([place] (5/325)) 2 tab Q6H PRN PO .SEVERE PAIN 7-10 Last administered on 02/26/19at 16:31; Admin Dose 2 TAB; Start 02/24/19 at 17:30 Enoxaparin Sodium (Lovenox) 30 mg DAILY SC Last administered on 02/27/19at 08:31; Admin Dose 30 MG; Start 02/25/19 at 09:00 Nitroglycerin (Nitroglycerin (Sl Tab) 0.4 Mg) 1 tab Q5M PRN SL ANGINA; Start 02/25/19 at 15:00 Atorvastatin Calcium (Lipitor) 40 mg HS PO Last administered on 02/26/19at 21:24; Admin Dose 40 MG; Start 02/26/19 at 21:00 Diagnostic Test (Pha) (Accu-Chek) 1 ea 02 XX ; Start 02/27/19 at 02:00 Insulin Aspart (Novolog Insulin Pen) NOVOLOG *MILD* ALGORITHM WITH MEALS BEDTIME SC Last administered on 02/27/19at 11:53; Admin Dose 1 UNIT; Start 02/26/19 at 13:30 Miscellaneous Information 1 ea NOTE XX ; Start 02/26/19 at 12:30 Glucose (Glutose) 15 gm Q15M PRN PO DECREASED GLUCOSE; Start 02/26/19 at 12:30 Glucose (Glutose) 22.5 gm Q15M PRN PO DECREASED GLUCOSE; Start 02/26/19 at 12:30 Dextrose (D50w Syringe) 25 ml Q15M PRN IV DECREASED GLUCOSE; Start 02/26/19 at 12:30 Dextrose (D50w Syringe) 50 ml Q15M PRN IV DECREASED GLUCOSE; Start 02/26/19 at 12:30 Glucagon (Glucagen) 1 mg Q15M PRN IM DECREASED GLUCOSE; Start 02/26/19 at 12:30 Glucose (Glutose) 15 gm Q15M PRN BUCCAL DECREASED GLUCOSE; Start 02/26/19 at 12:30 KIMBERLY BOOTH February 27, 2019 13:31
== END 2019-02-27 15:07 | disposition home or self-care (01) ==
LOC: E/R 12:30 → SUATTDRO 17:24 → 6WM 17:26
PROVIDERS: ADMIT Internal Medicine; ATTEND Family Medicine
DX: R07.9 Chest pain, unspecified (principal); E11.9 Type 2 diabetes mellitus without complications; E78.5 Hyperlipidemia, unspecified; Z86.73 Personal history of transient ischemic attack (TIA), and cerebral infarction without residual deficits; Z89.022 Acquired absence of left finger(s); Z87.891 Personal history of nicotine dependence; G43.109 Migraine with aura, not intractable, without status migrainosus
CPT/HCPCS: 36415; 70450; 71045; 78452; 80048; 80053; 80061; 82962; 83036; 83735; 84443; 84484; 85025; 93005; 93017; 93306; A9500; A9505; J1650; J1815; J2785; Z7500; Z7502; Z7610; G0378